=== PATIENT | female | born 1980 | race Caucasian/White ===

== ENCOUNTER → 2016-05-29 | Outpatient (CLI) | payer BC ==
[~2016-05-29] MED LIST: ASPI-390 PO; BUPR100T8 PO; CIPR-255 PO; DIPH1TAB98 PO; FLUC150T PO; GLC500 PO; MAGN1TAB19 PO; MICO2CRE63 PV; ONDA4TAB7 SL; PHEN-876 PO; SERT50TA PO; TOPI50TA16 PO; [UNRECOGNIZED DRUG - CODE] PV
[2016-06-01 02:30] LABS: CHLAMYDIA TRACH RNA*** NOT DETECTED (NOT DETECTED); GC (NEIS GONORRHOEAE)RNA** NOT DETECTED (NOT DETECTED)
== END | disposition home or self-care (01) ==
LOC: C.LABSPEC 16:01
PROVIDERS: ATTEND Obstetrics & Gynecology
DX: Z11.3 Encounter for screening for infections with a predominantly sexual mode of transmission (principal)

== ENCOUNTER → 2016-05-29 | Outpatient (CLI) | payer BC | END | disposition home or self-care (01) | LOC: C.PAPS 09:49 | PROVIDERS: ATTEND Obstetrics & Gynecology | DX: Z01.419 Encounter for gynecological examination (general) (routine) without abnormal findings (principal) ==

== ENCOUNTER → 2016-05-29 | Outpatient (CLI) | payer BC | END | disposition home or self-care (01) | LOC: C.LAB1850 12:30 | PROVIDERS: ATTEND Obstetrics & Gynecology | DX: Z11.3 Encounter for screening for infections with a predominantly sexual mode of transmission (principal) ==

== ENCOUNTER 2017-01-29 08:55 | Emergency (ER) | payer SELFPAY ==
[~2017-01-29] VITALS: Ht 165.1 cm; Wt 82.3 kg
[~2017-01-29 08:55] MED LIST changes: -PHEN-876 PO
[2017-01-29 09:10] VITALS: TEMP 36.9; Ht 165.1 cm; Wt 82.3 kg
[2017-01-29] MEDS ORDERED: ALBUT/IPRATROP 3MG/0.5MG NEB 3 ML VIAL INH STA (10:42)
[2017-01-29 11:21] LABS: URINE APPEARANCE CLEAR (CLEAR); URINE BILIRUBIN NEG (NEG); URINE COLOR YELLOW; URINE NITRITE NEG (NEG); URINE SPECIFIC GRAVITY 1.011 (1.000-1.030); UROBILINOGEN NEG (NEG)
[2017-01-29 11:25] LABS: MANUAL MICROSCOPIC REQUIRED? NO; REVIEW REQ? NO
[2017-01-29 11:36] LABS: BASO % 0.2 %; BASO ABS # 0.02 K/uL (0-0.2); COMPLETE YES; EOS % 2.3 %; HEMATOCRIT 36.6 % (37-47); IG% 0.2 %; LYMPH % 19.9 %; LYMPH ABS # 1.62 K/uL (1.2-3.4); MEAN CELL VOLUME 83.6 fL (80-100); MEAN CORPUSCULAR HEMOGLOBIN 28.8 pg (25-34); MEAN CORPUSCULAR HGB CONC 34.4 g/dl (32-36); MEAN PLATELET VOLUME 9.6 fL (7.4-10.4); MONO % 7.2 %; NEUT % 70.2 %; PLATELET COUNT 328 K/uL (130-400); RED BLOOD COUNT 4.38 M/uL (4.2-5.4); WHITE BLOOD COUNT 8.15 K/uL (4.8-10.8)
--- NOTE | 2017-01-29 11:38 | DIAGNOSTIC IMAGING REPORT ---
TWO VIEW CHEST CLINICAL HISTORY: Cough. Sore throat. FINDINGS: PA and lateral chest radiographs are compared to study dated 12/01/2007. The examination is degraded by large body habitus. The cardiomediastinal silhouette is unremarkable. The lungs and pleural spaces are clear. There is no pneumothorax. The bony thorax appears intact. IMPRESSION: No active disease in the chest. Electronically signed by: Bernard Escoto M.D. 01/29/2017 11:37 AM Dictated Date/Time: 01/29/2017 11:37 AM
[2017-01-29 11:49] LABS: BENZODIAZEPINE, URINE NEG (NEG); COCAINE,URINE NEG (NEG); PHENCYCLIDINE, URINE NEG (NEG)
[2017-01-29 11:49] LABS: BUN/CREATININE RATIO 7.2 (10-20); CALCIUM 9.7 mg/dl (8.5-10.1); CREATININE 0.63 mg/dl (0.60-1.20); POTASSIUM 3.3 mmol/L (3.5-5.1)
[2017-01-29 11:59] LABS: THYROID STIMULATING HORMONE 0.872 uIu/ml (0.300-4.500)
[2017-01-29 12:30] VITALS: BP 109/87; PULSE 106; O2SAT 100
[2017-01-29] MEDS ORDERED: ALBUTEROL HFA 8 GM INHALER INH ONE (12:30)
[2017-01-29] MEDS ORDERED: IBUPROFEN 600 MG TAB PO STA (12:30)
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
== END 2017-01-29 12:42 | disposition home or self-care (01) ==
LOC: C.EDB 08:56 → C.EDA 12:42
DX: J06.9 Acute upper respiratory infection, unspecified (principal); Z87.891 Personal history of nicotine dependence; F41.9 Anxiety disorder, unspecified; F32.9 Major depressive disorder, single episode, unspecified; E11.9 Type 2 diabetes mellitus without complications; I10 Essential (primary) hypertension; G43.909 Migraine, unspecified, not intractable, without status migrainosus; E66.9 Obesity, unspecified; Z87.440 Personal history of urinary (tract) infections

== ENCOUNTER → 2017-11-05 | Outpatient (CLI) | payer OTHER ==
[~2017-11-05] MED LIST changes: -ASPI-390 PO; -BUPR100T8 PO; -CIPR-255 PO; -DIPH1TAB98 PO; -FLUC150T PO; -MAGN1TAB19 PO; -MICO2CRE63 PV; -ONDA4TAB7 SL; -SERT50TA PO; -TOPI50TA16 PO; -[UNRECOGNIZED DRUG - CODE] PV
--- NOTE | 2017-11-05 10:07 | DIAGNOSTIC IMAGING REPORT ---
KUB HISTORY: R39.15 Urinary [id number] COMPARISON: None. FINDINGS: The bowel gas pattern is unremarkable. There are no dilated loops of small bowel to suggest an obstruction. No renal calculi. No ureteral calculi. Calcifications in the deep pelvis likely represent phleboliths. No pneumoperitoneum or pneumatosis. IMPRESSION: No renal or ureteral stones. Electronically signed by: Felipe Mccurdy M.D. 11/05/2017 10:06 AM Dictated Date/Time: 11/05/2017 10:05 AM
== END | disposition home or self-care (01) ==
LOC: C.RAD1850 09:22
PROVIDERS: ATTEND Internal Medicine
DX: R39.15 Urgency of urination (principal)

== ENCOUNTER 2017-11-26 16:02 | Emergency (ER) | payer OTHER ==
[~2017-11-26] VITALS: Ht 167.6 cm; Wt 90.2 kg
[2017-11-26 16:04] VITALS: Ht 167.6 cm; Wt 90.2 kg
[2017-11-26] MEDS ORDERED: ONDANSETRON INJ 2 MG/ML 2 ML VIAL IV STA (16:20)
[2017-11-26] MEDS ORDERED: KETOROLAC TROMETHAMINE 30 MG/ML VIAL IV STA (16:21)
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
[2017-11-26 16:50] LABS: BASO % 0.1 %; BASO ABS # 0.01 K/uL (0-0.2); EOS % 2.8 %; HEMATOCRIT 36.4 % (37-47); HEMOGLOBIN 11.6 g/dL (12.0-16.0); LYMPH % 29.2 %; LYMPH ABS # 2.06 K/uL (1.2-3.4); MEAN CELL VOLUME 76.8 fL (80-100); MEAN CORPUSCULAR HEMOGLOBIN 24.5 pg (25-34); MEAN CORPUSCULAR HGB CONC 31.9 g/dl (32-36); MEAN PLATELET VOLUME 9.8 fL (7.4-10.4); MONO % 5.8 %; MONO ABS # 0.41 K/uL (0.11-0.59); NEUT % 62.1 %; NEUT ABS # 4.37 K/uL (1.4-6.5); PLATELET COUNT 371 K/uL (130-400); RED CELL DISTRIBUTION WIDTH CV 15.3 % (11.5-14.5); RED CELL DISTRIBUTION WIDTH SD 42.9 fL (36.4-46.3); WHITE BLOOD COUNT 7.05 K/uL (4.8-10.8)
[2017-11-26] MEDS ORDERED: HYDR-389 PO (17:07)
[2017-11-26] MEDS ORDERED: SERT1TAB71 PO (17:07)
[2017-11-26] MEDS ORDERED: GLC/500 PO (17:07)
[2017-11-26] MEDS ORDERED: ERGO500037 PO (17:07)
[2017-11-26] MEDS ORDERED: TOPI25TA99 PO (17:07)
[2017-11-26 17:11] LABS: ALBUMIN 3.8 gm/dl (3.4-5.0); ALKALINE PHOSPHATASE 72 U/L (45-117); ALT/SGPT 21 U/L (12-78); AST/SGOT 18 U/L (15-37); BLOOD UREA NITROGEN 9 mg/dl (7-18); CARBON DIOXIDE 23 mmol/L (21-32); CREATININE 0.67 mg/dl (0.60-1.20); GLUCOSE 92 mg/dl (70-99); LIPASE 135 U/L (73-393); POTASSIUM 3.7 mmol/L (3.5-5.1); SODIUM 138 mmol/L (136-145); TOTAL PROTEIN 8.1 gm/dl (6.4-8.2)
--- NOTE | 2017-11-26 17:25 | DIAGNOSTIC IMAGING REPORT ---
ABD/PELVIS NO IV OR ORAL CONT CT DOSE: 829.25 mGy.cm HISTORY: Pain acute abdominal pain TECHNIQUE: Multiaxial CT images of the abdomen and pelvis were performed without contrast. A dose lowering technique was utilized adhering to the principles of ALARA. COMPARISON STUDY: None. FINDINGS: Lung bases are clear. No evidence renal hydronephrosis. Anchors is unremarkable. The graft bowel pattern is nonobstructive. The appendix is normal area in bladder is midline. Uterus is anteflexed. No free fluid within the pelvic cul-de-sac. IMPRESSION: Negative study The above report was generated using voice recognition software. It may contain grammatical, syntax or spelling errors. Electronically signed by: Ramy Saab M.D. 11/26/2017 5:24 PM Dictated Date/Time: 11/26/2017 5:22 PM
[2017-11-26] MEDS ORDERED: TAMS0.4C38 PO (17:36)
[2017-11-26 17:48] VITALS: BP 104/70; PULSE 83; TEMP 36.7; O2SAT 98
== END 2017-11-26 17:50 | disposition home or self-care (01) ==
LOC: C.EDB 16:04
DX: R39.11 Hesitancy of micturition (principal); F41.9 Anxiety disorder, unspecified; F32.9 Major depressive disorder, single episode, unspecified; E11.9 Type 2 diabetes mellitus without complications; I10 Essential (primary) hypertension; E66.9 Obesity, unspecified; Z88.2 Allergy status to sulfonamides; Z91.018 Allergy to other foods; Z91.011 Allergy to milk products; Z88.8 Allergy status to other drugs, medicaments and biological substances